=== PATIENT | female | born 1945 | race Caucasian/White ===

== ENCOUNTER → 2017-01-26 | Outpatient (CLI) | payer OTHER, MEDICARE ==
[~2017-01-26] MED LIST: MULT-506 PO; VALS-59 PO
[2017-01-26 10:09] LABS: BASO % 0.2 %; BASO ABS # 0.01 K/uL (0-0.2); COMPLETE YES; EOS % 2.5 %; HEMATOCRIT 42.4 % (37-47); IG% 0.2 %; LYMPH % 19.6 %; LYMPH ABS # 1.17 K/uL (1.2-3.4); MEAN CORPUSCULAR HEMOGLOBIN 30.1 pg (25-34); MEAN CORPUSCULAR HGB CONC 33.5 g/dl (32-36); MEAN PLATELET VOLUME 8.7 fL (7.4-10.4); MONO % 8.7 %; NEUT % 68.8 %; PLATELET COUNT 252 K/uL (130-400); RED BLOOD COUNT 4.71 M/uL (4.2-5.4); WHITE BLOOD COUNT 5.96 K/uL (4.8-10.8)
[2017-01-26 10:44] LABS: ALT/SGPT 22 U/L (12-78); BLOOD UREA NITROGEN 16 mg/dl (7-18); BUN/CREATININE RATIO 16.8 (10-20); CALCIUM 8.9 mg/dl (8.5-10.1); CARBON DIOXIDE 28 mmol/L (21-32); CHLORIDE 107 mmol/L (98-107); CHOLESTEROL 227 mg/dl (0-200); CREATININE 0.95 mg/dl (0.60-1.20); GLUCOSE 88 mg/dl (70-99); SODIUM 140 mmol/L (136-145)
[2017-01-26 10:47] LABS: ALB/GLOB RATIO 1.2 (0.9-2); ALKALINE PHOSPHATASE 79 U/L (45-117); AST/SGOT 18 U/L (15-37); CHOLESTEROL/HDL RATIO 3.3; HDL CHOLESTEROL 68 mg/dl; LDL CHOLESTEROL CALCULATED 130 mg/dl; TRIGLYCERIDES 144 mg/dl (0-150); VERY LOW DENSITY LIPOPROT CALC 29 mg/dl
== END | disposition home or self-care (01) ==
LOC: C.LAB1850 09:01
PROVIDERS: ATTEND Family Medicine
DX: I10 Essential (primary) hypertension (principal)

== ENCOUNTER → 2017-08-04 | Outpatient (CLI) | payer OTHER, MEDICARE ==
[2017-08-04 13:16] LABS: BASO % 0.3 %; BASO ABS # 0.02 K/uL (0-0.2); EOS ABS # 0.17 K/uL (0-0.5); HEMATOCRIT 44.2 % (37-47); HEMOGLOBIN 14.8 g/dL (12.0-16.0); LYMPH ABS # 1.27 K/uL (1.2-3.4); MEAN CELL VOLUME 91.3 fL (80-100); MEAN CORPUSCULAR HEMOGLOBIN 30.6 pg (25-34); MEAN CORPUSCULAR HGB CONC 33.5 g/dl (32-36); MEAN PLATELET VOLUME 9.1 fL (7.4-10.4); MONO % 9.7 %; MONO ABS # 0.56 K/uL (0.11-0.59); NEUT ABS # 3.74 K/uL (1.4-6.5); PLATELET COUNT 262 K/uL (130-400); RED CELL DISTRIBUTION WIDTH CV 12.9 % (11.5-14.5); RED CELL DISTRIBUTION WIDTH SD 43.2 fL (36.4-46.3); WHITE BLOOD COUNT 5.76 K/uL (4.8-10.8)
[2017-08-04 13:39] LABS: ALBUMIN 4.3 gm/dl (3.4-5.0); ALT/SGPT 22 U/L (12-78); BLOOD UREA NITROGEN 18 mg/dl (7-18); CALCIUM 9.6 mg/dl (8.5-10.1); CARBON DIOXIDE 29 mmol/L (21-32); CREATININE 1.01 mg/dl (0.60-1.20); GLUCOSE 95 mg/dl (70-99); SODIUM 137 mmol/L (136-145)
[2017-08-04 13:42] LABS: ALKALINE PHOSPHATASE 76 U/L (45-117); AST/SGOT 14 U/L (15-37); TOTAL PROTEIN 7.6 gm/dl (6.4-8.2)
== END | disposition home or self-care (01) ==
LOC: C.LAB1850 11:57
PROVIDERS: ATTEND Family Medicine
DX: I10 Essential (primary) hypertension (principal)

== ENCOUNTER 2021-03-03 20:49 | Observation (INO) ==
[2021-03-03 21:32] LABS: Basophils # (auto) 0.06 K/uL (0-0.2); Basophils % (auto) 0.9 %; Eosinophils # (auto) 0.41 K/uL (0-0.5); Eosinophils % (auto) 6.4 %; Hematocrit (blood only) 41.4 % (37-47); Hemoglobin 13.7 g/dL (12.0-16.0); Immature Granulocytes # (auto) 0.01 K/uL (0.00-0.02); Immature Granulocytes % (auto) 0.2 %; Lymphocytes # (auto) 1.23 K/uL (1.2-3.4); Lymphocytes % (auto) 19.2 %; Mean Corpuscular Hemoglobin 31.1 pg (25-34); Mean Corpuscular Hgb Conc 33.1 g/dL (32-36); Mean Corpuscular Volume 94.1 fL (80-100); Mean Platelet Volume 8.7 fL (7.4-10.4); Monocytes # (auto) 0.66 K/uL (0.11-0.59); Monocytes % (auto) 10.3 %; Neutrophils # (auto) 4.02 K/uL (1.4-6.5); Platelet Count 272 K/uL (130-400); RDW Coefficient of Variation 12.6 % (11.5-14.5); RDW Standard Deviation 43.2 fL (36.4-46.3); White Blood Count 6.39 K/uL (4.8-10.8)
[2021-03-03 21:47] LABS: Partial Thromboplastin Ratio 1.1; Partial Thromboplastin Time 28.5 Seconds (21.0-31.0); Prothrombin Time 10.1 Seconds (9.0-12.0)
[2021-03-03 21:49] LABS: Alanine Aminotransferase 30 U/L (12-78); Albumin Level 3.8 gm/dl (3.4-5.0); Aspartate Aminotransferase 23 U/L (15-37); BUN Creatinine Ratio 17.2 (10-20); Blood Urea Nitrogen 22 mg/dl (7-18); Calcium 9.3 mg/dl (8.5-10.1); Carbon Dioxide 29 mmol/L (21-32); Chloride 106 mmol/L (98-107); Creatinine Clr Calc Pharmacy 40.4 ml/min; Est GFR (African American) 48.6 ml/min; Est GFR (Non-African American) 41.9 ml/min; Glucose 112 mg/dl (70-99); Potassium 3.5 mmol/L (3.5-5.1); Sodium 141 mmol/L (136-145)
[2021-03-03 21:54] LABS: Albumin Globulin Ratio 1.1 (0.9-2); Alkaline Phosphatase 101 U/L (45-117); Bilirubin,Total 0.2 mg/dl (0.2-1); Globulin 3.5 gm/dl (2.5-4.0); Total Protein 7.3 gm/dl (6.4-8.2); Troponin I < 0.015 ng/ml (0-0.045)
[2021-03-03] MEDS ORDERED: hydrALAZINE HCL 20 MG/ML VIAL IV STA (22:54)
[2021-03-03] MEDS ORDERED: LABETALOL HCL IV 5 MG/ML 20ML IV STA (23:50)
--- NOTE | 2021-03-04 00:33 | Emergency Department Note ---
History of Present Illness General Chief complaint: Cardiac Assessment Stated complaint: CHEST DISCOMFORT X2 DAYS Time Seen by Provider: 03/03/21 22:52 Source: patient and RN notes reviewed Mode of arrival: ambulatory Limitations: no limitations History of Present Illness Provider complaint: Right upper chest pain Maximum Pain Intensity: 5 This patient is a 75-year-old female who presents to the emergency department with complaints of right upper chest pain. Patient states she has been taking Keflex for the last several days due to a stye on the right eye. She is not able to correlate the pain to exertion although states that she does become short of breath with exertion. Patient notes that her blood pressure is markedly elevated and states that she has "whitecoat syndrome." She denies any cardiac history and does not think that she is ever had a stress test. She denies any smoking history. Patient denies any pain with deep inspiration, fevers, cough, abdominal pain, vomiting or diarrhea. Home Medications Medication Instructions Recorded Confirmed Type multivitamin 1 tab PO DAILY 05/18/20 03/08/21 History losartan 100 1 tab PO DAILY #90 tab 07/02/20 03/08/21 Rx mg-hydrochlorothiazide 25 mg tablet potassium chloride 10 mEq 10 meq PO DAILY #90 tab 07/02/20 03/08/21 Rx tablet,extended release famotidine 20 mg tablet 20 mg PO DAILY 7 Days #7 tab 03/04/21 03/08/21 Rx lorazepam 0.5 mg tablet 0.5 mg PO DAILY PRN #5 tab 03/08/21 03/08/21 Rx Allergies Allergy/AdvReac Type Severity Reaction Status Date / Time piroxicam [From Feldene] Allergy Unknown Unknown Verified 03/08/21 11:25 Past Med/Surg History Medical History Contusion of right knee and lower leg Hypertension Surgical History History of hysterectomy History of lumpectomy History of wisdom tooth extraction Family History Mother Breast cancer Colorectal cancer Ovarian cancer Father Rectal cancer Heart disease Myocardial infarction Denies family history of Prostate cancer Social History Smoking Status: Never smoker Second Hand Exposure: No; Hx Alcohol Use: No Hx Substance Use: No Beliefs That Will Affect Care: None marital status: / Current Living Situation: Alone current occupational status: retired Feels Safe at Home: Yes Dental Care, Regularly: Yes Physical Activity Frequency: 3-4 Times per Week Physical Activity Frequency Comment: walking Seatbelt Use: always Sunscreen Use: Yes Assistive Devices: None Review of Systems See HPI for pertinent positives & negatives. and A total of 10 systems reviewed and were otherwise negative Physical Exam Vital Signs Vital Signs - 24 hr 03/03/21 21:02 03/03/21 22:50 03/03/21 23:24 Temperature 36.9 C Temperature Source Temporal Artery Scan Pulse Rate 88 Pulse Rate [Apical] 78 78 Pulse Rhythm [Apical] Regular Pulse Strength [Apical] Normal Respiratory Rate 19 18 16 Respiratory Effort / Characteristics Non-Labored Non-Labored Non-Labored Spontaneous Respiratory Depth Normal Normal Normal Respiratory Pattern Regular Blood Pressure 237/91 H Blood Pressure [Right Arm] 210/92 H 210/101 H Blood Pressure Mean 139 Blood Pressure Mean [Right Arm] 131 137 Pulse Oximetry 96 97 98 Oxygen Delivery Method Room Air Room Air Room Air Sepsis Recent Fever Within 48 Hours No Sepsis New/Unexplained Change in Mental Status N/A Sepsis Action Taken by Nursing No Action Required 03/03/21 23:50 03/04/21 00:09 Temperature Temperature Source Pulse Rate Pulse Rate [Apical] 71 Pulse Rhythm [Apical] Pulse Strength [Apical] Respiratory Rate 16 Respiratory Effort / Characteristics Respiratory Depth Respiratory Pattern Blood Pressure Blood Pressure [Right Arm] 233/106 H 181/78 H Blood Pressure Mean Blood Pressure Mean [Right Arm] 148 112 Pulse Oximetry 97 Oxygen Delivery Method Room Air Sepsis Recent Fever Within 48 Hours Sepsis New/Unexplained Change in Mental Status Sepsis Action Taken by Nursing Vital signs reviewed. General: Well-appearing 75-year-old female, in no significant distress. HEENT: No scleral icterus, PERRLA, neck supple. Atraumatic. Cardiovascular: Regular rate and rhythm, no extra sounds. Pulmonary: Clear to auscultation bilaterally, normal work of breathing. Abdomen: Soft, nontender, nondistended, positive bowel sounds. Musculoskeletal: Atraumatic, no peripheral edema. Nontender to palpation of the anterior chest wall Neurologic: Patient awake alert and oriented x 3 Skin: Warm, dry, no rash Course Administered Medications Discontinued Medications Acetaminophen (Acetaminophen 325 Mg Tab) 650 mg PO Q4H PRN PRN Reason: Pain or Fever Stop: 04/03/21 05:21 Last Admin: 03/04/21 07:19 Dose: 650 mg Documented by: [id number] Enoxaparin Sodium (Enoxaparin Inj 40 Mg/0.4 Ml Syr) 40 mg SQ Q24H YUNIEL Stop: 04/03/21 05:59 Last Admin: 03/04/21 06:34 Dose: Not Given Documented by: [id number] Famotidine (Famotidine 40 Mg Tablet) 40 mg PO NOW STA Stop: 03/04/21 05:33 Last Admin: 03/04/21 06:39 Dose: 40 mg Documented by: [id number] HCTZ/Losartan Potassium (Losartan/Hctz 50/12.5mg Tab) 1 tab PO DAILY YUNIEL Stop: 04/03/21 08:59 Last Admin: 03/04/21 07:20 Dose: 1 tab Documented by: [id number] Hydralazine HCl (Hydralazine Hcl 20 Mg/Ml Vial) 10 mg IV NOW STA Stop: 03/03/21 22:55 Last Admin: 03/03/21 22:58 Dose: 10 mg Documented by: [id number] Sodium Chloride (Nss 1000ml) 1,000 mls @ 80 mls/hr IV .[id number] YUNIEL Stop: 04/03/21 01:14 Last Infusion: 03/04/21 13:36 Dose: 0 mls/hr Documented by: [id number] Admin: 03/04/21 12:54 Dose: 80 mls/hr Documented by: [id number] Infusion: 03/04/21 12:54 Dose: 80 mls/hr Documented by: [id number] Admin: 03/04/21 01:17 Dose: 80 mls/hr Documented by: [id number] Ioversol (Optiray 320 125ml) 117 ml IV ONCE ONE Stop: 03/04/21 01:06 Last Admin: 03/04/21 01:05 Dose: 117 ml Documented by: [id number] Labetalol HCl (Labetalol Hcl Iv 5 Mg/Ml 20ml) 10 mg IV NOW STA Stop: 03/03/21 23:51 Last Admin: 03/03/21 23:55 Dose: 10 mg Documented by: [id number] Cosigned by: [id number] Critical Care Time Critical Care Time: Yes I have personally spent 30 minutes of critical care time in the direct management of this patient. This was a life/limb threatening event. This 30 minutes is in excess of all separately billable procedures. Medical Decision Making Differential Diagnosis Cardiac ischemia, aortic dissection, pulmonary embolism, pneumothorax, pneumonia, pericarditis, myocarditis, esophageal rupture, GERD, cholecystitis, pancreatitis, musculoskeletal, as well as other pathologies. Medical Records Attestation: I reviewed the patient's medical records. Home Medications Current Medication List: was personally reviewed by me Laboratory Data Attestation: I reviewed the patient's lab results. Result diagrams: 03/03/21 21:24 03/03/21 21:24 Lab Results 03/03/21 03/03/21 03/03/21 Range/Units 21:24 21:24 21:24 WBC 6.39 (4.8-10.8) K/uL RBC 4.40 (4.2-5.4) M/uL Hgb 13.7 (12.0-16.0) g/dL Hct 41.4 (37-47) % MCV 94.1 (80-100) fL MCH 31.1 (25-34) pg MCHC 33.1 (32-36) g/dL RDW Std Deviation 43.2 (36.4-46.3) fL RDW Coeff of Chirstina 12.6 (11.5-14.5) % Plt Count 272 (130-400) K/uL MPV 8.7 (7.4-10.4) fL Immature Gran % (Auto) 0.2 % Neut % (Auto) 63.0 % Lymph % (Auto) 19.2 % [place] % (Auto) 10.3 % Eos % (Auto) 6.4 % Baso % (Auto) 0.9 % Neut # (Auto) 4.02 (1.4-6.5) K/uL Lymph # (Auto) 1.23 (1.2-3.4) K/uL [place] # (Auto) 0.66 H (0.11-0.59) K/uL Eos # (Auto) 0.41 (0-0.5) K/uL Baso # (Auto) 0.06 (0-0.2) K/uL Immature Gran # (Auto) 0.01 (0.00-0.02) K/uL PT 10.1 (9.0-12.0) Seconds INR 1.0 (0.9-1.1) APTT 28.5 (21.0-31.0) Seconds PTT Ratio 1.1 Sodium 141 (136-145) mmol/L Potassium 3.5 (3.5-5.1) mmol/L Chloride 106 (98-107) mmol/L Carbon Dioxide 29 (21-32) mmol/L Anion Gap 6.0 (3-11) BUN 22 H (7-18) mg/dl Creatinine 1.26 H (0.6-1.2) mg/dl Est Cr Clr Drug Dosing 40.4 ml/min Est GFR ( Amer) 48.6 ml/min Est GFR (Non-Af Amer) 41.9 ml/min BUN/Creatinine Ratio 17.2 (10-20) Glucose 112 H (70-99) mg/dl Calcium 9.3 (8.5-10.1) mg/dl Total Bilirubin 0.2 (0.2-1) mg/dl AST 23 (15-37) U/L ALT 30 (12-78) U/L Alkaline Phosphatase 101 (45-117) U/L Troponin I < 0.015 (0-0.045) ng/ml Total Protein 7.3 (6.4-8.2) gm/dl Albumin 3.8 (3.4-5.0) gm/dl Globulin 3.5 (2.5-4.0) gm/dl Albumin/Globulin Ratio 1.1 (0.9-2) COVID-19 Eval Order SARS-CoV-2 (PCR) (Negative) 03/03/21 03/03/21 Range/Units 23:24 23:24 WBC (4.8-10.8) K/uL RBC (4.2-5.4) M/uL Hgb (12.0-16.0) g/dL Hct (37-47) % MCV (80-100) fL MCH (25-34) pg MCHC (32-36) g/dL RDW Std Deviation (36.4-46.3) fL RDW Coeff of Christina (11.5-14.5) % Plt Count (130-400) K/uL MPV (7.4-10.4) fL Immature Gran % (Auto) % Neut % (Auto) % Lymph % (Auto) % [place] % (Auto) % Eos % (Auto) % Baso % (Auto) % Neut # (Auto) (1.4-6.5) K/uL Lymph # (Auto) (1.2-3.4) K/uL [place] # (Auto) (0.11-0.59) K/uL Eos # (Auto) (0-0.5) K/uL Baso # (Auto) (0-0.2) K/uL Immature Gran # (Auto) (0.00-0.02) K/uL PT (9.0-12.0) Seconds INR (0.9-1.1) APTT (21.0-31.0) Seconds PTT Ratio Sodium (136-145) mmol/L Potassium (3.5-5.1) mmol/L Chloride (98-107) mmol/L Carbon Dioxide (21-32) mmol/L Anion Gap (3-11) BUN (7-18) mg/dl Creatinine (0.6-1.2) mg/dl Est Cr Clr Drug Dosing ml/min Est GFR ( Amer) ml/min Est GFR (Non-Af Amer) ml/min BUN/Creatinine Ratio (10-20) Glucose (70-99) mg/dl Calcium (8.5-10.1) mg/dl Total Bilirubin (0.2-1) mg/dl AST (15-37) U/L ALT (12-78) U/L Alkaline Phosphatase (45-117) U/L Troponin I (0-0.045) ng/ml Total Protein (6.4-8.2) gm/dl Albumin (3.4-5.0) gm/dl Globulin (2.5-4.0) gm/dl Albumin/Globulin Ratio (0.9-2) COVID-19 Eval Order Covid19 at [facility] SARS-CoV-2 (PCR) NEGATIVE (Negative) Imaging Data Radiologist's Impression: Chest X-Ray 03/03/21 21:06 XR chest 1V portable HISTORY: Atypical Chest Pain COMPARISON: None. FINDINGS: The lungs are clear. Cardiac silhouette is normal in size. No pleural effusions. No pneumothorax. IMPRESSION: No acute process. ACT 112: Negative or not required by law. Electronically signed by: Ozzie Hernández M.D. 03/04/2021 8:15 AM Chest CTA 03/03/21 23:50 CT angio chest dissec wo/w con INDICATION: MN ^C6 CTR ^chest pain HTN. TECHNIQUE: Multidetector row helical CT of the chest was performed before and after injection of IV contrast. Coronal and sagittal reformations were obtained. Automated dose lowering techniques and/or adjustment according to patient size were utilized for this exam. Comparison: None available at the time of this dictation. FINDINGS: Lungs and pleura: 2 mm nodule in the right upper lobe and scattered intraparenchymal lymph nodes in the bilateral fissures. Heart and pericardium: Heart size is normal. No pericardial effusion. Vessels: No evidence of pulmonary embolism. Mediastinum and dena: Unremarkable. Chest wall and lower neck: Unremarkable. Abdomen: 7 mm hypodensity is seen in the spleen, too small to characterize. Hepatic steatosis is noted. Bones: Unremarkable. IMPRESSION: No evidence of aortic dissection. No acute abnormality. ACT 112: Negative or not required by law. Electronically signed by: Jesu Brito M.D. 03/04/2021 7:26 AM ECG Data Attestation: I personally reviewed and interpreted this ECG as follows: Indication: + chest pain Rate (beats per minute): 90 Rhythm: + normal sinus ECG Intervals/blocks: + Normal QRS and + Normal QT-c ECG Emerson: + Normal ECG ST segments: + Nonspecific ST abnormalities ECG Findings: + LVH; no PACs or no PVCs Comparison ECG Date: no prior available Blood Pressure Blood Pressure Findings: Elevated blood pressure Blood Pressure Disposition: further management by hospitalist KACY Narrative This patient was evaluated and appeared to be in no significant distress. IV access was obtained and laboratory work was drawn. An order for cardiac monitoring was placed and the patient is noted to be in a normal sinus rhythm at 78 bpm. Patient's EKG reveals nonspecific ST changes. There is no evidence of acute ST elevation OR. Laboratory work reveals a negative troponin. Patient di d receive 10 mg of IV hydralazine with minimal improvement in blood pressure. Subsequently she was given 10 mg of IV labetalol with significant improvement in the blood pressure. CT chest was performed and was negative for dissection. Given the patient's age, marked hypertension and chest discomfort, she was discussed with the hospitalist service will evaluate the patient for further management. Impression & Plan Hypertensive urgency, Atypical chest pain Discharge Plan Visit Data Chief Complaint: Cardiac Assessment Stated Complaint: CHEST DISCOMFORT X2 DAYS ED Provider: [place] Rojas Discharge Problem: Hypertensive urgency, Atypical chest pain Patient Disposition: Admitted As Inpatient Discharge Instructions Interventions: ED Discharge Assessment Last Done: 03/04/21 04:51
[2021-03-04] MEDS ORDERED: OPTIRAY 320 125ml IV ONE (01:05)
[2021-03-04] MEDS: SODIUM CHLORIDE 0.9% 1000ML 1,000 ML IV SCH ×2 (01:17→12:54)
--- NOTE | 2021-03-04 03:52 | History & Physical Report ---
Date of Service March 04, 2021 Assessment & Plan (1) Chest pain: Plan: 75 yo F w/ pMHx. of HTN presents with chest pain for several days and hypertensive urgency/emergency Chest pain, continue to evaluate for ACS although potentially due to HTN vs. reflux and possibly due pill esophagitis (KCl?) Heart score 5 - moderate risk Troponin nl., this is reassuring as she has had the pain for several days CTA w/o PE EKG w/o clear ischemic changes, does have left axis deviation - monitor on telemetry - started Famotidine for possible reflux - ECHO ordered - trending troponin - consider stress testing to rule out ACS HTN 237/91 initially, treated in ER with Hydralazine and Labetalol - improved to 150's/70's This may be due to anxiety given chest pain, or causing her chest pain. She has had the chest pain for several days with unclear BP over this time but perhaps less likely that the BP was causing the pain although her pain did improve when her BP was lowered. - continue home Losartan-HCTZ - continue to monitor Code: conditional Diet: regular DVT: Lovenox (2) Hypertension: (3) Osteoarthritis: (4) Low back pain: History of Present Illness Chief Complaint: Chest pain Primary Care Provider: Rene Delgado MD Cassia Ramirez is a 75-year-old female here with a past medical history sig nificant for OA, HTN, and a H/O uterine cancer who presents with chest pain. She developed the pain on Monday and describes the sensation as burning 4/10 at it's worst and lasting approximately 30 minutes at a time but unclear how long it was present for. She feels the pain in her chest on the right side. The pain was occurring off and on on Monday and then on Monday it was worse than prior an d this brought her into the ER. She has noted that the sensation was like she had to burp. She has no history of reflux and did not know if this is what she was feeling. She did have possibly some improvement in her symptoms with Tums. She did have pancreatitis about 40 years ago and does not feel that this is similar. She notes that the pain improves with lying down and was better after she received medication for her BP that was elevated to 237 systolic. She explained that her blood pressure can be elevated in medical settings like the dentist but never this high. She has an associated headache that she attributes to her blood pressure at the top of her head that came on suddenly but is not the worst headache of her life and is similar to her prior headaches. She does note that she has had a stye that she has been treating with Keflex for 2+ weeks. Allergies Allergy/AdvReac Type Severity Reaction Status Date / Time piroxicam [From Feldene] Allergy Unknown Unknown Verified 03/03/21 23:53 Home Medications Medication Instructions Recorded Confirmed Type multivitamin 1 tab PO DAILY 05/18/20 03/03/21 History losartan 100 1 tab PO DAILY #90 tab 07/02/20 03/03/21 Rx mg-hydrochlorothiazide 25 mg tablet potassium chloride 10 mEq 10 meq PO DAILY #90 tab 07/02/20 03/03/21 Rx tablet,extended release famotidine 20 mg tablet 20 mg PO DAILY 7 Days #7 tab 03/04/21 Rx Past Med/Surg History Medical History Contusion of right knee and lower leg Hypertension Surgical History History of hysterectomy History of lumpectomy History of wisdom tooth extraction Family History Mother Breast cancer Colorectal cancer Ovarian cancer Father Rectal cancer Heart disease Myocardial infarction Denies family history of Prostate cancer Social History Smoking Status: Never smoker Second Hand Exposure: No; Hx Alcohol Use: No Hx Substance Use: No Beliefs That Will Affect Care: None marital status: / Current Living Situation: Alone current occupational status: retired Feels Safe at Home: Yes Dental Care, Regularly: Yes Physical Activity Frequency: 3-4 Times per Week Physical Activity Frequency Comment: walking Seatbelt Use: always Sunscreen Use: Yes Assistive Devices: None Review of Systems Review of Systems: Constitutional: denies fevers, nausea, vomiting, general weakness, night sweats, diaphoresis, weight loss admits chills and fatigue Head: denies trauma, LOC, confusion, lightheadedness, vision changes admits headache Neuro: denies slurring of speech, focal weakness, numbness or tingling ENT: denies stuffiness, sneezing, sore throat admits chronic rhinorrhea Cardiac: denies palpitations, leg edema, orthopnea admits chest pain Pulm: denies cough, shortness of breath, hemoptysis, sputum production GI: denies diarrhea, constipation, blood in stool, change in bowel habits : denies urgency, frequency, dysuria Physical Exam Constitutional: WD/WN, vitals as above Eyes: PERRL, conjunctivae normal, anicteric sclerae ENMT: external ear and nose normal, oropharynx normal Neck: normal visual inspection Respiratory: normal respiratory effort, lungs clear to auscultation Cardiovascular: RRR, no murmur, no edema Gastrointestinal (Abdomen): normal bowel sounds, soft, nontender, no hepatosplenomegaly Musculoskeletal: - pain on palpation over the right costochondral cartilage (not the same as prior chest pain) Skin: no rashes, warm and dry Neurologic: no focal motor deficits and not confused Speech / Cognition: normal speech Psychiatric: A+Ox3, euthymic affect Results & Data Results & Data ([facility]) Vital Signs (Past 12 Hours) Vital Signs Temp Pulse Pulse Resp BP BP Pulse Ox 03/04/21 02:00 72 16 160/69 H 95 03/04/21 00:50 69 18 155/72 H 95 03/04/21 00:09 71 16 181/78 H 97 03/03/21 23:50 233/106 H 03/03/21 23:24 78 16 210/101 H 98 03/03/21 22:50 78 18 210/92 H 97 03/03/21 21:02 36.9 C 88 19 237/91 H 96 CBC Results Results Complete Blood Count Results: RBC 4.40 M/uL (4.2-5.4) 03/03/21 WBC 6.39 K/uL (4.8-10.8) 03/03/21 Hgb 13.7 g/dL (12.0-16.0) 03/03/21 Hct 41.4 % (37-47) 03/03/21 Plt Count 272 K/uL (130-400) 03/03/21 Chemistry (BMP) Results BMP Results: Sodium 141 mmol/L (136-145) 03/03/21 Potassium 3.5 mmol/L (3.5-5.1) 03/03/21 Chloride 106 mmol/L (98-107) 03/03/21 BUN 22 mg/dl (7-18) H 03/03/21 Creatinine 1.26 mg/dl (0.6-1.2) H 03/03/21 Glucose 112 mg/dl (70-99) H 03/03/21 Code Status & VTE Plan VTE Prophylaxis Plan VTE Prophylaxis will be ordered: Yes Supervising Physician Co-Signing Physician Notes Attending addendum: I have physically seen this patient, have supervised the medical residents activities, and agree with the H&P unless as otherwise noted. Assessment and Plan: Chest pain/uncontrolled hypertension- The patient will be admitted to telemetry for serial cardiac enzymes, serial EKG's, cardiac rhythm monitoring and a 2-D echocardiogram with Dopplers. Given hydralazine IV and labetalol IV by the ED with some improvement. Continue losartan/HCTZ Lopressor 5 mg IV every 4 hours as needed systolic blood pressure greater than 160 if heart rate greater than 70 Hydralazine 10 mg IV every 4 hours as needed systolic blood pressure greater than 160 if heart rate less than 70 Consider stress testing prior to discharge Remaining orders and notations as noted Resident Activity Tracking Resident Involvement: Resident Care Provided Care Provided: Adult Hospital Medicine
[2021-03-04] MEDS ORDERED: ACETAMINOPHEN 325 MG TAB PO PRN (05:22)
[2021-03-04] MEDS ORDERED: POLYETHYLENE (MIRALAX) 17 GM PACK PO PRN (05:22)
[2021-03-04] MEDS ORDERED: FAMOTIDINE 40 MG TABLET PO STA (05:32)
[2021-03-04] MEDS: ENOXAPARIN INJ 40 MG/0.4 ML SYR SQ SCH ×2 (06:07→06:34)
--- NOTE | 2021-03-04 07:27 | CT Scan Report ---
CT angio chest dissec wo/w con INDICATION: MN ^C6 CTR ^chest pain HTN. TECHNIQUE: Multidetector row helical CT of the chest was performed before and after injection of IV c ontrast. Coronal and sagittal reformations were obtained. Automated dose lowering techniques and/or a djustment according to patient size were utilized for this exam. Comparison: None available at the time of this dictation. FINDINGS: Lungs and pleura: 2 mm nodule in the right upper lobe and scattered intraparenchymal lymph nodes in t he bilateral fissures. Heart and pericardium: Heart size is normal. No pericardial effusion. Vessels: No evidence of pulmonary embolism. Mediastinum and dena: Unremarkable. Chest wall and lower neck: Unremarkable. Abdomen: 7 mm hypodensity is seen in the spleen, too small to characterize. Hepatic steatosis is note d. Bones: Unremarkable. IMPRESSION: No evidence of aortic dissection. No acute abnormality. ACT 112: Negative or not required by law. Electronically signed by: Jesu Brito M.D. 03/04/2021 7:26 AM
--- NOTE | 2021-03-04 08:16 | XRay Report ---
XR chest 1V portable HISTORY: Atypical Chest Pain COMPARISON: None. FINDINGS: The lungs are clear. Cardiac silhouette is normal in size. No pleural effusions. No pneumot horax. IMPRESSION: No acute process. ACT 112: Negative or not required by law. Electronically signed by: Ozzie Hernández M.D. 03/04/2021 8:15 AM
[2021-03-04] MEDS ORDERED: LOSARTAN/HCTZ 50/12.5MG TAB PO SCH (09:00)
--- NOTE | 2021-03-04 19:13 | Discharge Summary ---
Date of Service March 04, 2021 Admission HPI Per Admitting Provider Cassia Ramirez is a 75-year-old female here with a past medical history significant for OA, HTN, and a H/O uterine cancer who presents with chest pain. She developed the pain on Monday and describes the sensation as burning 4/10 at it's worst and lasting approximately 30 minutes at a time but unclear how long it was present for. She feels the pain in her chest on the right side. The pain was occurring off and on on Monday and then on Monday it was worse than prior and this brought her into the ER. She has noted that the sensation was like she had to burp. She has no history of reflux and did not know if this is what she was feeling. She did have possibly some improvement in her symptoms with Tums. She did have pancreatitis about 40 years ago and does not feel that this is similar. She notes that the pain improves with lying down and was better after she received medication for her BP that was elevated to 237 systolic. She explained that her blood pressure can be elevated in medical settings like the dentist but never this high. She has an associated headache that she attributes to her blood pressure at the top of her head that came on suddenly but is not the worst headache of her life and is similar to her prior headaches. She does note that she has had a stye that she has been treating with Keflex for 2+ weeks. Discharge Data Allergies Allergy/AdvReac Type Severity Reaction Status Date / Time piroxicam [From Feldene] Allergy Unknown Unknown Verified 03/03/21 23:53 Consultations 03/03/21 23:56 ED Decision to Admit Stat Ordered Studies 03/03/21 23:50 CT angio chest dissec wo/w con Urgent Discharge Plan Discharge Items Patient Disposition: Home - Self-Care Reason For Visit: CHEST PAIN Discharge Diagnosis: Atypical chest pain Activity: Resume your previous activity Non-emergency contact: Primary Care Provider Call non-emergency contact if: you have any medication questions and your symptoms worsen Follow-up/Referrals: Rene Cummings MD [Primary Care Provider] - Diet: Heart Healthy Addtl Attending Provider Instructions: You were observed overnight at [facility] from March 03 - 2020 due to chest pain and high blood pressure. You were diagnosed with hypertensive urgency treated with anti-hypertensives in the emergency room and your blood pressure normalized overnight with your usual blood pressure medication. Echocardiogram was normal. Most likely your chest pain is gastrointestinal in origin from recent antibiotic use and recommend using famotidine 20mg PO daily for the next 7 days. Pending Studies at Discharge: No Stand-Alone Forms: My [facility], Smoking Cessation Medications and DC Order Prescriptions: New famotidine 20 mg tablet 20 mg PO DAILY 7 Days Qty: 7 RF: 0 Continued potassium chloride 10 mEq tablet extended release 10 meq PO DAILY Qty: 90 RF: 3 losartan-hydrochlorothiazide 100-25 mg tablet 1 tab PO DAILY Qty: 90 RF: 3 multivitamin Tablet 1 tab PO DAILY RF: 0 Discontinued cephalexin 500 mg capsule 500 mg PO BID RF: 0 Discharge Orders: Discharge Order (Routine); Ordered 03/04/21 Ordered By: Pa Sloan Admission Data Admit Date/Time: 03/04/21 02:23 Attending Provider: Pa Sloan Admit Provider: James Krause Primary Care Provider: Rene Cummings V. Other Providers: Godwin Amador
--- NOTE | 2021-03-04 19:32 | XCELERA ---
[id number]
--- NOTE | 2021-03-05 03:45 | Billing Data ---
Date of Service March 05, 2021 Coding Level of Care Code INT OBSERVATION CARE 71M LVL 3
--- NOTE | 2021-03-05 06:06 | Electrocardiogram Report ---
Test Reason : Blood Pressure : / mmHG Vent. Rate : 090 BPM Atrial Rate : 090 BPM P-R Int : 178 ms QRS Dur : 096 ms QT Int : 358 ms P-R-T Axes : 044 -11 051 degrees QTc Int : 437 ms Poor data quality, interpretation may be adversely affected Normal sinus rhythm Possible Left atrial enlargement Left ventricular hypertrophy Nonspecific ST abnormality Abnormal ECG No previous ECGs available Confirmed by Angel Mooney ([id number]) on 03/05/2021 6:06:31 AM Referred By: REFERRED SELF Confirmed By:Angel Mooney
== END 2021-03-04 20:19 | disposition home or self-care (01) ==
LOC: 2N 20:49 → ED 20:49 → SUATTDRO 03-04 02:23 → 2N 03-04 04:51